=== PATIENT | female | born 1950 | race Caucasian/White ===

== ENCOUNTER 2018-08-24 01:13 | Inpatient (IN) | payer MEDICAID, MEDICARE ==
[2018-08-23 13:59] LABS: INR 0.94
[~2018-08-24] VITALS: Ht 170.2 cm; Wt 78.9 kg
[2018-08-24] VITALS (13 sets, daily range): BP systolic 90–160; BP diastolic 76–138
[~2018-08-24 01:13] MED LIST: OXYC-823 PO; PROP40TA45 PO; TIZA4CAP3 PO; ZOLP-350 PO
[2018-08-24] MEDS: PREGABALIN 150 MG CAPSULE PO ONE ×2 (07:23→08:45)
[2018-08-24] MEDS: ONDANSETRON 4 MG/2 ML VIAL IVP ONE ×2 (08:00→09:35)
[2018-08-24] MEDS ORDERED: ONDANSETRON 4 MG/2 ML VIAL ONE (08:01)
[2018-08-24] MEDS ORDERED: PROPOFOL EMUL(*) 10MG/ML 20 ML 20 ML ONE (08:01)
[2018-08-24] MEDS ORDERED: LIDOCAINE MPF 1% 5 ML VIAL ONE (08:01)
[2018-08-24] MEDS ORDERED: DEXAMETHASONE SOD 4 MG/ML VIAL ONE (08:02)
[2018-08-24] MEDS ORDERED: fentaNYL CITR 100 MCG/2 ML AMP ONE (08:05)
[2018-08-24] MEDS ORDERED: MIDAZOLAM 2 MG/2 ML VIAL IVP PRN (08:45)
[2018-08-24] MEDS ORDERED: cloNIDine EPIDUR INJ 100MCG/ML 40 MCG, ROPIVACAINE 0.5% 20 ML VIAL 25 ML, EPINEPHrine H... INJ ONE (08:45)
[2018-08-24] MEDS ORDERED: CLINDAMYCIN(*) 900 MG/NS 50 ML 50 ML IVPB ONE (08:45)
[2018-08-24] MEDS ORDERED: LIDOCAINE/SOD BICARB 8.4% SYR ID ONE (08:45)
[2018-08-24] MEDS ORDERED: BACITRACIN 50000 UNIT/VIAL 100,000 UNIT in NS 0.9% 3000 ML IRRIGATION BAG 3,000 ML IR ONE (08:45)
[2018-08-24] MEDS ORDERED: NORMOSOL R SOLN(*) 1000 ML BAG 1,000 ML IV PRN (08:45)
[2018-08-24] MEDS ORDERED: ACETAMINOPHEN 500 MG TAB PO ONE (08:45)
[2018-08-24] MEDS ORDERED: FAMOTIDINE 20 MG TAB PO ONE (08:45)
[2018-08-24] MEDS ORDERED: LIDOCAINE/SOD BICARB 8.4% SYR ONE (10:00)
[2018-08-24] MEDS ORDERED: ePHEDrine 25 MG/5 ML DISP.SYR IVP ONE (11:16)
[2018-08-24] MEDS ORDERED: BISACODYL 10 MG SUPP PR PRN (13:45)
[2018-08-24] MEDS ORDERED: diphenhydrAMINE 50 MG/ML VIAL IVP PRN (13:45)
[2018-08-24] MEDS ORDERED: BENZOCAINE/MENTHOL 1 EACH LOZG PO PRN (13:45)
[2018-08-24] MEDS ORDERED: PROMETHAZINE 25 MG/ML 1 ML AMP IVP PRN (13:45)
[2018-08-24] MEDS ORDERED: LR 1000 ML BAG 1000 ML IV PRN (13:45)
[2018-08-24] MEDS ORDERED: diphenhydrAMINE 25 MG CAP PO PRN (13:45)
[2018-08-24] MEDS ORDERED: FLUSH 10 ML SYR IVP PRN (13:45)
[2018-08-24] MEDS ORDERED: MAGNESIUM CITRATE 300 ML BTL PO PRN (13:45)
[2018-08-24] MEDS ORDERED: ONDANSETRON 4 MG/2 ML VIAL IVP PRN (13:45)
--- NOTE | 2018-08-24 13:46 | OPERATIVE REPORT 1 ---
EVENT DATE: August 24, 2018 SURGEON: Francisco J Landry MD ANESTHESIOLOGIST: Efren Coreas MD ANESTHESIA: General plus spinal. MOLD TECHNICIAN: SHIRA Bryant PREOPERATIVE DIAGNOSIS Right hip osteoarthritis. POSTOPERATIVE DIAGNOSIS Right hip osteoarthritis. PROCEDURE PERFORMED Right total hip arthroplasty. FINDINGS The patient has a significant amount of arthritic changes associated with her hip but was amenable for total hip replacement. ESTIMATED BLOOD LOSS About 150 mL. DRAINS None. COMPLICATIONS None. TOURNIQUET TIME Not applicable. IMPLANTS USED Christiano size 62 mm cluster-hole Trabecular Metal cup with a neutral liner for a 40 mm head, 13.5 extended offset stem with a 40 head, one dome-hole plug and three screw hole plugs. SPECIMENS None. INDICATIONS AND HISTORY This patient is a 67-year-old female that presented to my clinic for evaluation of right hip pain going on for a long time. She had multiple surgeries associated with the hip secondarily due to infections and she had been clear of infections for multiple years so she wanted to go ahead with the total hip arthroplasty as she was having quite a bit of pain and irritation associated with it. Therefore,we went over the risks and benefits associated with the total hip arthroplasty and the risks and benefits were discussed and informed consent was obtained at the last clinic visit. We got her set up to do this and she understood that there is a significant increase in the risks of infection and risks associated with problems associated with the hip and she stated she understood that prior to the procedure also. Informed consent was obtained at the last clinic visit. DESCRIPTION OF PROCEDURE The patient was brought into the operating room. She and the procedure were both verified. Unfortunately, they had a lot of problems with access so I had to do a central line associated with her in order to get IV access. Once they were able to do this, they then established a spinal and then intubated her and turned her to the lateral decubitus position with the right hip towards the ceiling. The right hip was then prepped and draped in the usual fashion and a time-out was observed, verifying the correct patient and procedure. The standard posterior lateral was made through the skin and subcutaneous tissue. I went through all the way down to the short external rotators after cutting the gluteal musculature and exposing the IT band. I then put a Charnley retractor into this area and then was able to go and cut the short external rotators. We then tagged the piriformis for later repair and then got down to the capsule of the hip. Once I was able to make a T-shaped incision within the capsule, I was able to tag that for later repair and then dislocate the hip. Once we were able to dislocate the hip, I then was able to cut the femoral neck without any major difficulty, cutting it just above the lesser trochanter. I then retracted the femur anteriorly and then was able to gain access to the acetabulum. Once I placed retractors all the way around there, I then removed the labrum 360 degrees around the acetabulum and then used a curette to get down to the true pelvic floor. Once I was able to get down to the true pelvic floor, I then commenced reaming, starting from a 49 [address] re[address] all the way up to a 61 mm reamer, which had a good concentric fit. Therefore, I then put in a 62 mm cluster-hole shell. Once I was able to put in the 62 mm cluster-hole shell, I then inserted that and got it down and had good fit associated with it so we put in a dome-hole plug and three screw hole plugs associated with it. I then put in the 40 neutral liner without any issues and then turned attention to the femur after soaking the wound with Aricept. Once on the femur, I was then able to use the box cutting osteotome then followed by the canal finder and then the lateralizing reamer. I then was able to commence broaching all the way up from a 4 to a 13.5 broach. I then put on a standard head and neck. This was found to be a little bit unstable so, therefore, we then changed the extended offset, which made sense given her arthritic change associated with the infection. Once I did this, it was significantly more stable so, therefore, we then took intraoperative x-rays and verified the cup was in good position and leg lengths were pretty much equal. This was then followed by irrigation again with copious amounts of saline with a pulsatile lavage with Bacitracin mixed in and also allowing Aricept to sit and soak within the wound. I then was able to irrigate again and then put in the final components without any difficulty. Everything seemed very stable so, therefore, we then closed the posterior capsule with a heavy Ethibond. This was then followed by closure of the piriformis through posterior drill holes and then I was able to close the IT band and gluteal musculature with a #2 Stratafix and then followed by 2-0 Vicryl in the fat layer and then 2-0 Stratafix in the subcutaneous layer. I then put in a 4-0 Monocryl and anesthetized with ropivacaine and we had cocktail prior to the closure and then dressed it with Steri-Strips, gauze, 4x4's and a soft dressing. The patient was then awakened, extubated and transferred to PACU in stable condition, where she will be admitted overnight. ANNEL
[2018-08-24] MEDS ORDERED: NORMOSOL R SOLN(*) 1000 ML BAG 1,000 ML IV ONE (13:56)
--- NOTE | 2018-08-24 15:33 | RADIOLOGY IMAGING REPORT ---
FACILITY: [facility] PATIENT NAME: Lynsey Garza : 1950 MR: [id number] V: [id number] EXAM DATE: ORDERING PHYSICIAN: DANIELLE PURCELL TECHNOLOGIST: Location: [facility] [place] Patient: Lynsey Garza : 1950 Visit/Account:[id number] Date of Sevice: 08/24/2018 PELVIS HISTORY: S/P TOTAL HIP ARTHROPLASTY, CHECK PLACEMENT Single AP film. FINDINGS: Status post right hip arthroplasty. Good positioning of the femoral and acetabular components. Post op soft tissue changes in the right hip. IMPRESSION: 1. Status post right hip arthroplasty. Report Dictated By: Charanjit Benavides MD at 08/24/2018 3:19 PM Report E-Signed By: Charanjit Benavides MD at 08/24/2018 3:28 PM WSN:[email or web address]
--- NOTE | 2018-08-24 15:36 | RADIOLOGY IMAGING REPORT ---
FACILITY: [facility] PATIENT NAME: Lynsey Garza : 1950 MR: [id number] V: [id number] EXAM DATE: ORDERING PHYSICIAN: DANIELLE PURCELL TECHNOLOGIST: Location: [facility] Patient: Lynsey Garza : 1950 Visit/Account:[id number] Date of Sevice: 08/24/2018 HIP IN OR RIGHT HISTORY: RIGHT TOTAL HIP LEFT HIP INTRAOPERATIVE FILMS (TWO FILMS) FINDINGS: Intraoperative films demonstrating right hip arthroplasty. There is good positioning of the acetabul ar femoral components. Overlying surgical instrumentation. Arthroplasty with good positioning of th e femoral and acetabular components. IMPRESSION: Intraoperative films as described. Two films obtained Report Dictated By: Charanjit Benavides MD at 08/24/2018 3:17 PM Report E-Signed By: Charanjit Benavides MD at 08/24/2018 3:31 PM WSN:QUITA
--- NOTE | 2018-08-24 16:26 | Hospitalist Consultation ---
History of Present Illness Requesting Physician Dr. Landry Reason for Consult Medical Management Chief Complaint s/p right hip replacement History of Present Illness She was admitted s/p right hip replacement. It is reported the surgery went well and without complication. History Problems: (1) Tremor Status: Chronic (2) Hx of blood clots Status: Chronic Home Meds Reported Medications Tizanidine Hcl (TIZANIDINE HCL) 4 Mg Capsule, 4 MG PO DAILY PRN for HEADACHE, CAPSULE 08/17/18 Zolpidem Tartrate (AMBIEN) 10 Mg Tablet, 1 TAB PO QHS, TAB 08/17/18 Propranolol Hcl (PROPRANOLOL HCL) 40 Mg Tablet, 40 MG PO BID 08/17/18 Oxycodone Hcl (OXYCONTIN) 10 Mg Tab.er.12h, 10 MG PO TID, TAB 08/17/18 Allergies: Coded Allergies: NSAIDS (Non-Steroidal Anti-Inflamma (Verified Allergy, Severe, SEVERE SWEATING AND SEVERE N/V., 08/17/18) STATES, 'DEFINITELY NO TORADOL'. ketorolac (Verified Allergy, Severe, SPECIFICALLY STATES NO TORADOL/SEVERE SWEATING/N/V, 08/24/18) pentazocine (Verified Allergy, Severe, GI DISTRESS, 08/17/18) Penicillins (Verified Allergy, Unknown, 08/17/18) HAS A CHILD AND HER MOTHER TOLD HER 'SHE ALMOST '. Hx Smoking: Yes (SMOKED <1 PPD X 30+YRS. QUIT 02/2018-- occ since ) Smoking Status: Current: Some Days Smoker Exposure to Second Hand Smoke?: No When Quit Tobacco?: 02/2018 Caffeine Intake: Coffee Caffeine/Cups Per Day: 2/WK, NOT A DAILY THING. DRINKS 1-2 PEPSI/COKE PER DAY, TEA DAILY Hx Alcohol Use: No Hx Substance Use Disorder: No Social Drug Use: Never History of IV Drug Use: No Review of Systems All Systems Reviewed/Normal: Yes, Except as Noted Constitutional: Other (sleeping throughout exam) Exam Vital Signs Vital Signs Date Time Temp Pulse Resp B/P (MAP) Pulse Ox O2 Delivery O2 Flow Rate FiO2 08/24/18 16:07 97 Nasal Cannula 1.0 08/24/18 15:35 97.4 58 12 123/82 (96) General Appearance: No Acute Distress, Afebrile Cardiovascular: Regular Rate and Rhythm Respiratory: No Respiratory Distress, Clear to Auscultation Psych: Other (sleeping throughout exam) Assessment and Plan Problems: (1) Status post right hip replacement Status: Acute Assessment & Plan: Followed by Dr. Landry. She was placed on Aspirin for DVT prophylaxis. She does have history of DVT. I was unable to obtain details rega rding DVT, but she does have IVC filter placed. (2) Tremor Status: Chronic Assessment & Plan: Continue chronic propranolol with hold parameters. (3) Hx of blood clots Status: Chronic Assessment & Plan: See above. Venous Thromboembolism Antithrombotics Is Pt On Any Antithrombotics?: No Exam Sepsis Risk: No Definite Risk LUDY MAYORGA BRUSH HOLDER ASSEMBLER August 24, 2018 16:26
[2018-08-24] MEDS: oxyCODON/ACET (*)5/325MG (CII) 1 TAB TAB PO PRN ×2 (16:50→21:12)
--- NOTE | 2018-08-24 17:22 | NUR ---
Physical Therapy Impression PT eval completed and Nursing present for safety during transfer and [place] [facility] previously sleeping soundly, per nursing SBAR, however, upon PT arrival pt is requesting pain meds and is very restless and impulsive with yellow wedge in place and attempting to roll onto L) side. Pt able to verbalize 2/3 of hip precautions but does not comply with them as she is attempting to reposition for comfort in bed. During transfers, pt impulsively sits up in long-sitting position in bed and requires both verbal and tactile cues to adhere to posterior hip precautions. Pt gradually agreeable to follow therapist's cues to transfer safely out of bed, but insists on transferring to L) side, which increases risk of internal rotation and adduction of R) LE during this transfer technique. Nursing present and instructed to maintain R) LE in neutral alignment and decrease pt's risk of internal rotation. Upon return to bed after toileting, pt continues to c/o pain at R) inguinal triangle area and states that the only relief previously was to lay in L) sidelying. Pt is adamant that she can not lay on her back and keeps attempting to roll onto L) side. PT/Nursing educated pt on the importance of maintaining R) hip in neutral alignment, not crossing midline and without internal rotation. Firm pillow placed between pt's lower legs in hooklying position and PT demonstrates to nursing and pt a safe manner in which to position onto L) side while maintaining posterior hip precautions. Pt/CG instructed that they are to call for assistance from nursing before attempting to change out of this position as well. Pt notes that this position is somewhat more comfortable. Pt left in L) sidelying with pillow placed for neutral alignment, with nursing and grand daughter present. Physical Therapy Goals 1. Pt to be compliant with posterior hip precautions during bed mobility and supine to/from sit transfers with CGA/Min assist 2. Pt to be SBA/CGA for sit to/from stand transfers with proper safety 3. Pt to ambulate 100' with least restrictive device and SBA/CGA 4. Pt to david up/down 4 steps with rail and SBA/CGA adhering to posterior hip precautions. Patient's Goals
[2018-08-24] MEDS: CLINDAMYCIN 150 MG CAP PO SCH ×2 (17:58→23:49)
[2018-08-24] MEDS ORDERED: OXYC10TA67 PO (18:23)
[2018-08-24] MEDS ORDERED: ALB18R INH (18:23)
[2018-08-24] MEDS: HYDROmorphone HCL 2 MG/ML SDV IVP PRN (19:17)
[2018-08-24] MEDS ORDERED: ASPIRIN 325 MG TAB PO SCH (21:00)
[2018-08-24] MEDS: PROPRANOLOL HCL 20 MG TAB PO SCH (21:00)
[2018-08-24] MEDS: ZOLPIDEM TARTRATE 5 MG TAB PO PRN (21:47)
[2018-08-25] VITALS (7 sets, daily range): BP systolic 100–125; BP diastolic 34–76; BMI 27.2
[2018-08-25] MEDS: HYDROmorphone HCL 2 MG/ML SDV IVP PRN ×6 (00:11→21:14)
[2018-08-25] MEDS: oxyCODON/ACET (*)5/325MG (CII) 1 TAB TAB PO PRN ×6 (02:19→23:26)
[2018-08-25] MEDS: CLINDAMYCIN 150 MG CAP PO SCH (06:24)
[2018-08-25] MEDS: ENOXAPARIN 30 MG/0.3 ML SYR SC SCH (09:36)
[2018-08-25] MEDS: PROPRANOLOL HCL 20 MG TAB PO SCH ×2 (09:37→21:00)
--- NOTE | 2018-08-25 10:17 | Hospitalist Progress Note ---
Subjective Progress Notes Subjective She was admitted s/p hip replacement. She has complaints of pain to the post-op area. She has not been moving well post-operatively. Patient Complains of: Cardiovascular: No: Chest Pain Respiratory: No: Shortness of Breath Physical Exam Vital Signs Date Time Temp Pulse Resp B/P (MAP) Pulse Ox O2 Delivery O2 Flow Rate FiO2 08/25/18 09:33 98.2 82 16 100/58 (72) 91 Nasal Cannula 1.0 Intake and Output 08/25/18 01:00 Intake Total 2390 ml Output Total 150 ml Balance 2240 ml Intake Oral 240 ml IV Total 2150 ml Output Estimated Blood Loss 150 ml # Voids 4 General Appearance: Alert, Awake, No Acute Distress Neuro: Other (noticable tremor at rest) Cardiovascular: Regular Rate and Rhythm Respiratory: No Respiratory Distress, Clear to Auscultation Extremities: Warm, Perfused; No Edema Psych: Alert & Oriented X3, Appropriate Mood & Affect Result Diagram: 08/25/1854708/25/18547 Assessment and Plan Problems: (1) Status post right hip replacement Status: Acute Assessment & Plan: Followed by Dr. Landry. She was placed on Aspirin for DVT prophylaxis, but the patient refuses to take NSAIDS. She does have history of DVT. 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 She would like to continue Lovenox injections for DVT prophylaxis at this time. (2) Tremor Status: Chronic Assessment & Plan: Continue chronic propranolol with hold parameters. She likely has Parkinson's per patient, but she is unsure if she has been truly diagnosed. The tremors will likely exacerbate her hip replacement rehab. (3) Hx of blood clots Status: Chronic Assessment & Plan: See above. Exam Sepsis Risk: No Definite Risk LUDY MAYORGA GAUGE AND INSTRUMENT INSPECTOR August 25, 2018 10:17
--- NOTE | 2018-08-25 10:38 | NUR ---
Physical Therapy Impression Nursing present to assist with safety for pivot transfer to bedside commode. Pt now agreeable to transfer to R) side of bed, which is much safer for R) NELSON to ensure improved neutral alignment. Pt is able to verbalize no crossing and no flexion greater than 70 degrees but does not recall "no internal rotation". Pt requires Tactile cues and Min assist to maintain posterior hip precautions during bed mobility. Pt requires Min/Mod assist from PT to complete safe sit to stand at FWW and demos significant tremors that disrupt the walker initially. Pt then able to gain center of gravity over base of support and requires Min assist with FWW negotiation to pivot to [place] with Nursing present to stabilize commode and assist with safety. After toileting at [place] pt tolerated ambulation with FWW and 2 person assist to negotiate and stabilize walker and second person to assist in advancing R) LE forward, as pt's tremors limit her ability to coordinate this motion. Pt does not c/o increased pain during mobility, but rather is frustrated with this apparent dyskinesia. Pt states that she has sought care for the tremors and has recently increased a medication to address this. Based on current level of safety, PT recommends acute rehab facility to aggressively address balance and coordination for transfers and ambulation while maintaining posterior hip precautions after NELSON. Pt resides in [place] and notes that her daughter and grand daughter will likely require trng to assist her in safety once she transfers home. Physical Therapy Goals 1. Pt to be compliant with posterior hip precautions during bed mobility and supine to/from sit transfers with CGA/Min assist 2. Pt to be SBA/CGA for sit to/from stand transfers with proper safety 3. Pt to ambulate 100' with least restrictive device and SBA/CGA 4. Pt to david up/down 4 steps with rail and SBA/CGA adhering to posterior hip precautions. Patient's Goals
[2018-08-25] MEDS ORDERED: NICOTINE CARTRIDGE 1 EA PO PRN (11:15)
[2018-08-25] MEDS ORDERED: NICOTINE INH SYSTEM 10 MG/INH INH PRN (11:15)
--- NOTE | 2018-08-25 11:43 | NUR ---
Occupational Therapy Impression OT evaluation completed. Pt. would benefit from short/nursing home subacute rehab due to pt. being at very high fall risk and not adhering to hip precautions. Continue with POC. Occupational Therapy Goals Patient's Goal
--- NOTE | 2018-08-25 17:00 | NUR ---
Physical Therapy Impression Pt tolerated ambulation x 8' with FWW and Min assist from PT to negotiate walker and advance R) LE at times. Pt fatigues quickly and at foot of bed requests to transfer back to supine in bed. After brief sitting rest break on commode, pt then completed side step "scoot" along edge of bed toward head of bed. Pt demos significant improvement in ability with decreased tremor, as compared to this morning and one person assist is now functional. Pt encouraged to have further rehab prior to d/c home to ensure appropriate level of safety and recall of NELSON precautions as they apply to ADL's. Pt agreeable to speak with nurse discharge planner regarding these options if medically appropriate. Physical Therapy Goals 1. Pt to be compliant with posterior hip precautions during bed mobility and supine to/from sit transfers with CGA/Min assist 2. Pt to be SBA/CGA for sit to/from stand transfers with proper safety 3. Pt to ambulate 100' with least restrictive device and SBA/CGA 4. Pt to david up/down 4 steps with rail and SBA/CGA adhering to posterior hip precautions. Patient's Goals
[2018-08-25] MEDS: ZOLPIDEM TARTRATE 5 MG TAB PO PRN (21:14)
[2018-08-26] MEDS: HYDROmorphone HCL 2 MG/ML SDV IVP PRN ×4 (00:57→15:04)
[2018-08-26] MEDS: oxyCODON/ACET (*)5/325MG (CII) 1 TAB TAB PO PRN ×5 (03:17→21:00)
[2018-08-26 04:00] VITALS: BP 120/70
[2018-08-26 08:30] VITALS: BP 116/70
[2018-08-26] MEDS: PROPRANOLOL HCL 20 MG TAB PO SCH ×2 (08:32→21:00)
[2018-08-26] MEDS: ENOXAPARIN 30 MG/0.3 ML SYR SC SCH (08:32)
--- NOTE | 2018-08-26 09:32 | NUR ---
ECF Referral - Met with patient, she wants to continue rehab locally versus having to manage the drive to [place]. Reported to me that PT stated she had improved so much from yesterday morning's session to the afternoon session. Explained rehab philosophy and she verbalized understanding. PASRR negative. Message left with [facility] nurse, she will have her 3 night qualifying stay on 08/27/18 and can be admitted if medically ready.
--- NOTE | 2018-08-26 10:18 | Hospitalist Progress Note ---
Subjective Progress Notes Subjective She was admitted s/p hip replacement. She had no acute events overnight. Patient Complains of: Cardiovascular: No: Chest Pain Respiratory: No: Shortness of Breath Physical Exam Vital Signs Date Time Temp Pulse Resp B/P (MAP) Pulse Ox O2 Delivery O2 Flow Rate FiO2 08/26/18 08:30 98.6 80 16 116/70 (85) Nasal Cannula 1.0 08/26/18 04:00 92 Intake and Output 08/26/18 01:00 Intake Total 1080 ml Balance 1080 ml Intake Oral 1080 ml # Voids 7 General Appearance: Alert, Awake, No Acute Distress, Afebrile Neuro: No Gross deficits Cardiovascular: Regular Rate and Rhythm Respiratory: No Respiratory Distress, Clear to Auscultation GI: Soft and Non-Tender Psych: Alert & Oriented X3, Appropriate Mood & Affect Result Diagram: 08/26/18 0544 08/25/18 0548 Assessment and Plan Problems: (1) Status post right hip replacement Status: Acute Assessment & Plan: Followed by Dr. Landry. She was placed on Aspirin for DVT prophylaxis, but the patient refuses to take NSAIDS. She does have history of DVT. 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 She would like to continue Lovenox injections for DVT prophylaxis at this time. (2) Tremor Status: Chronic Assessment & Plan: Continue chronic propranolol with hold parameters. She likely has Parkinson's per patient, but she is unsure if she has been truly diagnosed. The tremors will likely exacerbate her hip replacement rehab. (3) Hx of blood clots Status: Chronic Assessment & Plan: See above. Exam Sepsis Risk: No Definite Risk LUDY MAYORGA CAR SHAGGER August 26, 2018 10:18
--- NOTE | 2018-08-26 11:26 | NUR ---
Physical Therapy Impression Pt tolerated ambulation of 8' to foot of bed and then requested a sitting rest break in W/C. Pt then ambulated an additional 8' to BR doorway and requested to sit in W/C again. Pt maneuvered in W/C to area next to toilet and completed a [id number] transfer with Min assist to access toilet and then was wheeled back to bedside to completed [id number] transfer again to bed. Pt notes that her UE's fatigue easily, however, pt did complete an overall greater distance ambulation today with improved safety and ability to advance R) LE. Physical Therapy Goals 1. Pt to be compliant with posterior hip precautions during bed mobility and supine to/from sit transfers with CGA/Min assist 2. Pt to be SBA/CGA for sit to/from stand transfers with proper safety 3. Pt to ambulate 100' with least restrictive device and SBA/CGA 4. Pt to david up/down 4 steps with rail and SBA/CGA adhering to posterior hip precautions. Patient's Goals
[2018-08-26 12:12] VITALS: Ht 170.2 cm; Wt 78.9 kg
[2018-08-26 16:40] VITALS: BP 139/78
[2018-08-26] MEDS: MAGNESIUM HYDROXIDE* 30ML UDCP PO PRN (16:55)
[2018-08-26 19:30] VITALS: BP 120/73
[2018-08-26] MEDS: ZOLPIDEM TARTRATE 5 MG TAB PO PRN (21:01)
[2018-08-26 23:00] VITALS: BP 111/69
[2018-08-27] MEDS: oxyCODON/ACET (*)5/325MG (CII) 1 TAB TAB PO PRN ×3 (00:47→09:33)
[2018-08-27 04:50] VITALS: BP 137/73
[2018-08-27 08:22] VITALS: BP 108/78
[2018-08-27] MEDS: PROPRANOLOL HCL 20 MG TAB PO SCH (08:25)
[2018-08-27] MEDS: ENOXAPARIN 30 MG/0.3 ML SYR SC SCH (08:26)
[2018-08-27] MEDS: MAGNESIUM HYDROXIDE* 30ML UDCP PO PRN (09:33)
--- NOTE | 2018-08-27 10:41 | Hospitalist Progress Note ---
Subjective Progress Notes Subjective She was admitted s/p hip replacement. She had no acute events overnight. She plans to go to [facility] today for further rehab. Patient Complains of: Cardiovascular: No: Chest Pain Respiratory: No: Shortness of Breath Physical Exam Vital Signs Date Time Temp Pulse Resp B/P (MAP) Pulse Ox O2 Delivery O2 Flow Rate FiO2 08/27/18 08:45 Nasal Cannula 08/27/18 08:22 98.1 77 12 108/78 (88) 91 08/27/18 04:50 1.0 Intake and Output 08/27/18 01:00 Intake Total 1220 ml Balance 1220 ml Intake Oral 1220 ml # Voids 10 General Appearance: Alert, Awake, No Acute Distress, Afebrile Neuro: No Gross deficits Cardiovascular: Regular Rate and Rhythm Respiratory: No Respiratory Distress, Clear to Auscultation Psych: Alert & Oriented X3, Appropriate Mood & Affect Result Diagram: 08/27/18 0544 08/25/18 0548 Assessment and Plan Problems: (1) Status post right hip replacement Status: Acute Assessment & Plan: Followed by Dr. Landry. She was placed on Aspirin for DVT prophylaxis, but the patient refuses to take NSAIDS. She does have history of DVT. 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 She would like to continue Lovenox injections for DVT prophylaxis at this time. (2) Tremor Status: Chronic Assessment & Plan: Continue chronic propranolol with hold parameters. She likely has Parkinson's per patient, but she is unsure if she has been truly diagnosed. The tremors will likely exacerbate her hip replacement rehab. (3) Hx of blood clots Status: Chronic Assessment & Plan: See above. Exam Sepsis Risk: No Definite Risk LUDY MAYORGA SWIMMING POOL MAINTENANCE August 27, 2018 10:41
== END 2018-08-27 10:17 | DRG 470 ==
LOC: OR 01:13 → OBSVTOIN 15:35 → MED 15:35
PROVIDERS: ADMIT Orthopaedic Surgery; ATTEND Orthopaedic Surgery
PROC: 0SR902A Replacement of Right Hip Joint with Metal on Polyethylene Synthetic Substitute, Uncemented, Open Approach (ICD-10-PCS; principal; 2018-08-24 11:03)
DX: M16.11 Unilateral primary osteoarthritis, right hip (principal); M25.751 Osteophyte, right hip; G89.29 Other chronic pain; N18.3 Chronic kidney disease, stage 3 (moderate); Z86.718 Personal history of other venous thrombosis and embolism; J44.9 Chronic obstructive pulmonary disease, unspecified; Z88.0 Allergy status to penicillin; Z88.8 Allergy status to other drugs, medicaments and biological substances; Z87.891 Personal history of nicotine dependence; R25.1 Tremor, unspecified; Z90.49 Acquired absence of other specified parts of digestive tract
CPT/HCPCS: 36415; 72170; 82310; 82374; 82435; 82565; 82947; 84132; 84295; 84520; 85014; 85018; 85610; 86850; 86900; 86901; 97161; 97165; C1713; C1776; J1100; J1170; J1650; J2001; J2250; J2405; J2704; J3010; J3490

== ENCOUNTER 2018-08-27 10:22 | Inpatient (IN) | payer MEDICAID, MEDICARE ==
[2018-08-26 12:12] VITALS: Ht 170.2 cm; Wt 83.5 kg
[~2018-08-27] VITALS: Ht 170.2 cm; Wt 83.5 kg
[~2018-08-27 10:22] MED LIST changes: +ALB18R INH; +OXYC10TA67 PO
--- NOTE | 2018-08-27 10:36 | NUR ---
SW found pt only has Medicare part B (not A) and Medicaid as payer. LT101 requested, and VM left for Medicaid to determine if any changes need to be made to pt's Medicaid for payment. Appears pt has disabled SSI Medicaid. SHAYNA will follow-up on this.
--- NOTE | 2018-08-27 10:42 | ECF H&P BLANK ---
F H&P UPDATE Patient Name: Lynsey Garza Unit Number: [id number] Date of : 1950 Patient Status: Discharged Inpatient Attending Doctor: Francisco J Landry MD History of Present Illness History of Present Illness Chief Complaint s/p right hip replacement History of Present Illness She was admitted s/p right hip replacement. It is reported the surgery went well and without complication. History History Problems: (1) Tremor Status: Chronic (2) Hx of blood clots Status: Chronic Home Meds Reported Medications Tizanidine Hcl (TIZANIDINE HCL) 4 Mg Capsule, 4 MG PO DAILY PRN for HEADACHE, CAPSULE 08/17/18 Zolpidem Tartrate (AMBIEN) 10 Mg Tablet, 1 TAB PO QHS, TAB 08/17/18 Propranolol Hcl (PROPRANOLOL HCL) 40 Mg Tablet, 40 MG PO BID 08/17/18 Oxycodone Hcl (OXYCONTIN) 10 Mg Tab.er.12h, 10 MG PO TID, TAB 08/17/18 Allergies: Coded Allergies: NSAIDS (Non-Steroidal Anti-Inflamma (Verified Allergy, Severe, SEVERE SWEATING AND SEVERE N/V., 08/17/18) STATES, 'DEFINITELY NO TORADOL'. ketorolac (Verified Allergy, Severe, SPECIFICALLY STATES NO TORADOL/SEVERE SWEATING/N/V, 08/24/18) pentazocine (Verified Allergy, Severe, GI DISTRESS, 08/17/18) Penicillins (Verified Allergy, Unknown, 08/17/18) HAS A CHILD AND HER MOTHER TOLD HER 'SHE ALMOST '. Hx Smoking: Yes (SMOKED <1 PPD X 30+YRS. QUIT 02/2018-- occ since ) Smoking Status: Current: Some Days Smoker Exposure to Second Hand Smoke?: No When Quit Tobacco?: 02/2018 Caffeine Intake: Coffee Caffeine/Cups Per Day: 2/WK, NOT A DAILY THING. DRINKS 1-2 PEPSI/COKE PER DAY, TEA DAILY Hx Alcohol Use: No Hx Substance Use Disorder: No Social Drug Use: Never History of IV Drug Use: No Review of Systems Review of Systems All Systems Reviewed/Normal: Yes, Except as Noted Constitutional: Other (sleeping throughout exam) Exam Exam Vital Signs Vital Signs Date Time Temp Pulse Resp B/P (MAP) Pulse Ox O2 Delivery O2 Flow Rate FiO2 08/24/18 16:07 97 Nasal Cannula 1.0 08/24/18 15:35 97.4 58 12 123/82 (96) General Appearance: No Acute Distress, Afebrile Cardiovascular: Regular Rate and Rhythm Respiratory: No Respiratory Distress, Clear to Auscultation Psych: Other (sleeping throughout exam) Medical Decision Making Medical Decision Making Assessment and Plan Assessment and Plan Problems: (1) Status post right hip replacement Status: Acute Assessment & Plan: Followed by Dr. Landry. She was placed on Aspirin for DVT prophylaxis. She does have history of DVT. I was unable to obtain details regarding DVT, but she does have IVC filter placed. (2) Tremor Status: Chronic Assessment & Plan: Continue chronic propranolol with hold parameters. (3) Hx of blood clots Status: Chronic Assessment & Plan: See above. VTE Venous Thromboembolism Antithrombotics Is Pt On Any Antithrombotics?: No CVA Documentation CVA Documentation Heart Failure Documentation Heart Failure Sepsis Event Exam Sepsis Risk: No Definite Risk LUDY MAYORGA [facility] August 24, 2018 16:26 The above acute care issues are resolving and/or stable. [place] [facility] and/or skilled rehabilitation and is ready for admission to [facility]. Any change in condition is described below. LUDY MAYORGA EXTRUDER OPERATOR MULTIPLE August 27, 2018 10:42
[2018-08-27] MEDS ORDERED: PROPRANOLOL HCL 20 MG TAB PO SCH (10:47)
[2018-08-27] MEDS ORDERED: MAGNESIUM HYDROXIDE* 30ML UDCP PO PRN (10:47)
[2018-08-27] MEDS ORDERED: NICOTINE INH SYSTEM 10 MG/INH INH PRN (10:47)
[2018-08-27] MEDS ORDERED: NICOTINE CARTRIDGE 1 EA PO PRN (10:47)
[2018-08-27] MEDS ORDERED: BISACODYL 10 MG SUPP PR PRN (10:49)
--- NOTE | 2018-08-27 11:06 | NUR ---
Spoke with Adilene at [employer] and notified of pt's admission to ECF and she entered this in system. Reports no other actions needed for admission.
[2018-08-27 11:29] VITALS: BP 129/57
--- NOTE | 2018-08-27 11:37 | Consultant Pharmacy Review ---
Hot Worker Review Medication Review Do All Mecications have a Diag: Yes (Patient may receive the flu vaccine if she desires and the pneumovax vaccine.) Pneumococcal Vaccine HX Pneumo Vac ([id number]): Yes (2011) JULES SERRATO August 27, 2018 11:37
[2018-08-27] MEDS: oxyCODON/ACET (*)5/325MG (CII) 1 TAB TAB PO PRN ×2 (13:50→17:33)
--- NOTE | 2018-08-27 14:04 | OT ECF NOTE ---
Type of Note: Initial Note Primary Medical Diagnosis: Generalized weakness s/p right total hip replacement. WBAT, Posterior hip precautions Occupational Therapy Evaluation Date: 08/27/18 SUBJECTIVE: Prior Hospitalization: [facility] 08/24/18 thru 08/27/18. DOS: 08/24/[address] Landry Prior Level of Function: Patient reports daughter resides with her and assists with LB dressing, bathing and all IADLs. Pt reports seeing a chronic pain specialist and leaving the house primarily for medical appointments. She reports frequent falls at home with roughly 10 falls in the last month. Prior Living Status: Apartment Living with family-daughter Assist by family Community Services: No known needs Home Accessibility: Stairs with rails All needs on one level Tub/shower commination Equipment Owned: Front wheeled walker Toilet riser Medical Complications/Past Medical History: Chronic tremor-pt reports Parkinson's, hx DVTs Psychosocial Support: Supportive family in [place] Pain Scale (0-10): 7-8/10 in right hip. 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 ASSESSMENT: Lynsey presents to [facility] with decreased independence for ADLs and functional mobility s/p right total hip replacement. She verbalizes all posterior hip precautions but has difficulty adhering with ADLs. At [facility], she was ambulating throughout her apartment and independent with toileting. Currently, she requires assist for toileting and is not able to ambulate functional distances safely. She will benefit from skilled OT services to optimize independence for ADLs and promote adherence to posterior hip precautions. Problem List/Current Limitations: Pain Decreased activity tolerance Decreased strength Decreased coordination Decreased balance Generalized weakness Poor safety awareness Short Term Goals: 1) Pt will be Min A LB dressing with education for LB AE. 2) Pt will be SBA grooming/hygiene. 3) Pt will be SBA toilet task. 4) Pt will be Mod A shower task. 5) Pt Rosalinda Index of ADLs will improve by 2 points. Assisted Goals: Return home with services and continued assist from daughter Patient Goals: Return home to cat Rehabilitation Prognosis: Good Barriers to Discharge: Medical hx, Hx of frequent falls PLAN: The patient will benefit from skilled occupational therapy services 5 times per week for 2 weeks including: Ther ex ADL training Safety training Ther act IADL training Transfer training Adaptive equip training Bed mobility Energy conservation Thank you for this referral. If you have any questions, concerns, or comments about this report or plan, please contact me at . Mae Jama MS, OTR/L Occupational Therapist ANNEL
--- NOTE | 2018-08-27 14:09 | NUR ---
Occupational Therapy Impression SBA supine to sit with HOB raised slightly. CGA/Min A steps x4. Min A sit<>supine. Pt declined further ADLs, reporting nausea and desire to return to supine in bed. Continue POC. Occupational Therapy Goals 1) Pt will be Min A LB dressing with education for LB AE. 2) Pt will be SBA grooming/hygiene. 3) Pt will be SBA toilet task. 4) Pt will be Mod A shower task. 5) Pt Rosalinda Index of ADLs will improve by 2 points. Patient's Goal
--- NOTE | 2018-08-27 14:35 | NUR ---
Physical Therapy Impression PT ECF eval completed Pt is fairly impulsive and resistant to teaching at times, placing her R) LE at risk for internal rotation and adduction with her current technique for supine to/from sit. Pt frequently twisting to her L) side to reach for things as well, rotating R) leg inward. Pt agreeable to PT rearranging room to position tray table and chair to pt's right side to avoid this potential rotation. Pt requests to transfer to [facility] for toileting. Pt resistant to placing head of bed flat for mobility and states that she plans to sleep on her recliner sofa upon return home. Pt encouraged to attempt normal bed mobility as well. CGA/Min assist required during transfer and [id number] due to pt's tremors with mobility. Pt was able to ambulate 8'x2 reps with seated rest break after 8' while on med/surg unit, however, she did require assist at times to advance R) LE due to ataxia. Pt would benefit from further rehab to ensure safety with posterior hip precautions while returning to prior level of function with safe, indpe gait and to tolerate up/down 6 steps to enter home. Physical Therapy Goals 1. Pt to be modified indep with safe technique for supine to/from sit transfers. 2. Pt to be modified indep with sit to/from stand transfer with least restrictive device and appropriate balance in standing to allow for toileting needs and pericare. 3. Pt to ambulate x 100' with SBA/Modified indep and least restrictive device 4. Pt to complete up/down 4 steps with rail and SBA/CGA for safety 5. Pt to verbalize and demo compliance with posterior hip precautions during ADL's. Patient's Goals
[2018-08-27] MEDS: ZOLPIDEM TARTRATE 10 MG TAB PO PRN (20:31)
[2018-08-27] MEDS: PROPRANOLOL HCL 20 MG TAB PO SCH (20:32)
[2018-08-28] MEDS: oxyCODON/ACET (*)5/325MG (CII) 1 TAB TAB PO PRN ×5 (00:02→23:29)
[2018-08-28 08:14] VITALS: BP 134/71
[2018-08-28] MEDS: PROPRANOLOL HCL 20 MG TAB PO SCH ×2 (09:00→20:34)
--- NOTE | 2018-08-28 09:23 | PT ECF NOTE ---
Type of Note: Initial Note Primary Medical Diagnosis: Generalized weakness s/p right total hip replacement. WBAT, Posterior hip precautions Physical Therapy Evaluation Date: 08/27/18 SUBJECTIVE: Prior Hospitalization: [facility] 08/24/18 thru 08/27/18. DOS: 08/24/[address] Landry Prior Level of Function: Patient reports daughter resides with her and assists with LB dressing, bathing and all IADLs. Pt reports seeing a chronic pain specialist and leaving the house primarily for medical appointments. She reports frequent falls at home with roughly 10 falls in the last month. Prior Living Status: Apartment; Living with family-daughter ; Assist by family Community Services: No known needs Home Accessibility: 6 Stairs with rails to enter; All needs on one level; Tub/shower commination Equipment Owned: Front wheeled walker; Toilet riser Medical Complications/Past Medical History: Chronic tremor-pt reports Parkinson's, hx DVTs Psychosocial Support: Supportive family in [place] Pain Scale (0-10): 3/10 in right hip. Pt requesting to transfer to [facility]. OBJECTIVE: Strength: R) LE not tested secondary to NELSON; L) LE WFL however dyskinesia affects control of strength at times. ROM: (please note any abnormalities) R) LE not tested secondary to NELSON; L) LE WFL. Sensation: (please note any abnormalities) No paresthesias reported Other Neuro findings: Pt reports Parkinson's and that recent increase in medication has not been helpful with her tremors. Pt does not appear to have tremors when resting in bed, however, they increase dramatically when attempting to ambulate or when releasing walker with one hand to doff brief for toileting. Bed Mobility: Min assist to maintain R) hip within posterior hip precautions Assistive device: Bed rail; Head of bed elevated Transfers: Minimum assistance to stabilize with regard to tremors Assistive Device: Front wheeled walker Gait: Minimum assistance to negotiate walker and to advance R) LE at times Assistive device: Front wheeled walker Stairs: Not yet addressed; unsafe at this time Assistive device: Timed Up and Go (>12 seconds indicated increased risk for falls): Pt unable to ambulate >8' currently. 10 meter walk test (0.6m/second cannot function independently): Unable to ambulate a functional distance to evaluate this currently. Other Objective Measures: n/a ASSESSMENT: Pt is fairly impulsive and resistant to teaching at times, placing her R) LE at risk for internal rotation and adduction with her current technique for supine to/from sit. Pt frequently twisting to her L) side to reach for things as well, rotating R) leg inward. CGA/Min assist required during transfer and [id number] due to pt's tremors with mobility. Pt was able to ambulate 8'x2 reps with festinating gait pattern and seated rest break after 8' while on med/surg unit, however, she did require assist at times to advance R) LE due to ataxia. Pt would benefit from further rehab to ensure safety with posterior hip precautions while returning to prior level of function with safe, indep gait and to tolerate up/down 6 steps to enter home. Problem List/Current Limitations: Pain, Decreased WB, Decreased activity david, Decreased strength, Decreased ROM, Decreased coordination, Ataxia Decreased balance, Poor safety awareness, Decreased problem solving Short Term Goals: 1. Pt to be modified indep with safe technique for supine to/from sit transfers. 2. Pt to be modified indep with sit to/from stand transfer with least restrictive device and appropriate balance in standing to allow for toileting needs and pericare. 3. Pt to ambulate x 100' with SBA/Modified indep and least restrictive device 4. Pt to complete up/down 4 steps with rail and SBA/CGA for safety 5. Pt to verbalize and demo compliance with posterior hip precautions during ADL's. Detention Goals: Pt to return home with assistance of family members to assist with ensuring safety with posterior hip precautions. Patient Goals: Return home as soon as possible Rehabilitation Prognosis: Fair Barriers for Discharge: Pt ability to comply with posterior hip precautions during ADL's and comorbidity of festinating gait pattern that affects safety with movement. PLAN: The patient will benefit from skilled physical therapy services 5 times per week for 2 weeks including: Therapeutic Exercise, Therapeutic Activities, Transfer Training Gait Training, Stair Training, ADL's, Safety Training, Pt/Caregiver Training, Bed Mobility Thank you for this referral. If you have any questions, concerns, or comments about this report or plan, please contact me at . h. Lupe Castro, PT, MPT, OMS THOMASD
[2018-08-28] MEDS: ENOXAPARIN 30 MG/0.3 ML SYR SC SCH (09:48)
[2018-08-28 09:50] VITALS: BP 111/69
--- NOTE | 2018-08-28 10:44 | NUR ---
Physical Therapy Impression Patient needed min A to get out of bed to adhere to hip precautions.Patient ambulated with FWW with cuing for weight shift onto right LE and min A to help increase right step length. Patient rested after 10 feet with a seated rest then performed weight shifts side to side and front to back to demonstrated how she needs to shift her weight onto her right LE with ambulation. Patient then ambulated 7 feet with a seated rest break. Then patient ambulated another 8 feet. Patient complained of pain with ambulation in her hip and nursing was notified. Patient transferred back into bed in unsafe manner and needed min A for right LE to adhere to hip precautions and to help get in bed without falling out. Patient educated that her transfer technique is not safe and she is at ROF when she gets into bed and that she adducts her leg and needs to keep it out when transferring. Physical Therapy Goals 1. Pt to be modified indep with safe technique for supine to/from sit transfers. 2. Pt to be modified indep with sit to/from stand transfer with least restrictive device and appropriate balance in standing to allow for toileting needs and pericare. 3. Pt to ambulate x 100' with SBA/Modified indep and least restrictive device 4. Pt to complete up/down 4 steps with rail and SBA/CGA for safety 5. Pt to verbalize and demo compliance with posterior hip precautions during ADL's. Patient's Goals
--- NOTE | 2018-08-28 11:24 | Medical Nutrition Therapy ---
Nutrition Anthropometrics Height (Inches): 67.00 Height (Calculated Centimeters: 170.510861 Weight (Pounds): 184 Weight (Calculated Kilograms): 83.461 BMI: 28.8 Rodrick Nutrition Score: Probably Inadequate Rodrick Nutrition Risk Score: 13 Dietary Referral Nutrition Risk Factors: Nutrition Risk Comment: Physical Findings Physical Appearance: Overweight BMI 25-29 Skin Appearance Skin Appearance: Edema Edema Location Modifier: Edema Location: Type of Edema: Degree of Edema: Gastrointestinal Symptoms GI Symtoms: Tube Present: Bowel Sounds: Recent Bowel Pattern: Stool Characteristics: Nutritional Diagnosis Nutritional Risk Acuity 4: Good Appetite Nutritional Acuity: 4-Low Energy Requirement: 2500 (30 kcal/kg) Protein Requirement: 83 (1g/kg) Fluid Requirement: 2500 (30ml/kg) Diet Type: Diet as Tolerated TEGAN/REG Nutrition Intervention: Cont diet as ordered, Encourage intake, HS snack Nutrition Monitoring & Eval Nutrition Goals: Eat 75-100% Meal RD Patient Assessment Time: [address] Assessment Type: RD Assessment Patient Nutrition Acuity: 4-Low Follow Up Date: September 04, 2018 Nutritional Comment: 08/28 pt admitted s/p right hip replacement. Pt on TEGAN and eating 100% of meals. BUN/creatinine mildly elevated at 20/1.3. Will cont to monitor and encourage intake. JALEN ERAZO August 28, 2018 11:24
[2018-08-28 16:42] VITALS: BP 134/67
[2018-08-28 20:30] VITALS: BP 145/84
[2018-08-28] MEDS: DOCUSATE SODIUM 100 MG CAP PO SCH (20:34)
[2018-08-28] MEDS: ZOLPIDEM TARTRATE 10 MG TAB PO PRN (20:34)
[2018-08-29] MEDS: oxyCODON/ACET (*)5/325MG (CII) 1 TAB TAB PO PRN ×3 (04:56→15:07)
[2018-08-29 08:25] VITALS: BP 110/74
[2018-08-29] MEDS: PROPRANOLOL HCL 20 MG TAB PO SCH ×2 (09:00→21:00)
[2018-08-29] MEDS: ENOXAPARIN 30 MG/0.3 ML SYR SC SCH (09:00)
[2018-08-29] MEDS: POLYETHYLENE GLYCOL 17 GM PKT PO SCH (09:00)
[2018-08-29] MEDS: DOCUSATE SODIUM 100 MG CAP PO SCH ×2 (09:00→20:18)
[2018-08-29 15:30] VITALS: BP 101/62
[2018-08-29] MEDS: ZOLPIDEM TARTRATE 10 MG TAB PO PRN (20:18)
[2018-08-29 20:30] VITALS: BP 110/71
[2018-08-30] MEDS: oxyCODON/ACET (*)5/325MG (CII) 1 TAB TAB PO PRN ×3 (03:14→15:53)
[2018-08-30 07:25] VITALS: BP 126/73
[2018-08-30] MEDS: ENOXAPARIN 30 MG/0.3 ML SYR SC SCH (08:46)
[2018-08-30] MEDS: POLYETHYLENE GLYCOL 17 GM PKT PO SCH (08:46)
[2018-08-30] MEDS: DOCUSATE SODIUM 100 MG CAP PO SCH ×2 (08:46→20:20)
[2018-08-30] MEDS: PROPRANOLOL HCL 20 MG TAB PO SCH ×2 (08:47→20:21)
--- NOTE | 2018-08-30 09:46 | NUR ---
Physical Therapy Impression Patient present in her room in her bed. Patient is able to recall two of three hip precautions but needs help to recall no IR. Patient ambulated from room down harris ~75 feet with CGA and 3 seated rest breaks. Patient was able to perform stair training with mod cuing for technique with step to gait ascend and descend 4 stairs with handrail on both sides. Patient is going home to steep stairs with railing and then 3 steps without railing or she has to ambulate through grass to get to her back deck after the stairs with railing. Patient would benefit from staying on ECF unit for a few more days to build strength and endurance before discharging home. Patient then ambulated back another 75 feet amd needed two seated rest break. Patient reports she feels out of breath. Her pulse ox was at 90%. Patient then transferred back into bed with unsafe technique but is unwilling to listen to proper transfer technique. Patient has decreased safety awareness with transfers, hip precautions and overall safety. Physical Therapy Goals 1. Pt to be modified indep with safe technique for supine to/from sit transfers. 2. Pt to be modified indep with sit to/from stand transfer with least restrictive device and appropriate balance in standing to allow for toileting needs and pericare. 3. Pt to ambulate x 100' with SBA/Modified indep and least restrictive device 4. Pt to complete up/down 4 steps with rail and SBA/CGA for safety 5. Pt to verbalize and demo compliance with posterior hip precautions during ADL's. Patient's Goals
--- NOTE | 2018-08-30 09:50 | NUR ---
Occupational Therapy Impression Independent bed mobility in/out. Mod (I) ambulation with RW. Mod (I) LB dressing. Educated on where to obtain LB AE. Mod (I) toileting. Pt declined shower, reports walk-in shower with chair at home. Reporting desire to discharge home today at current level of function. Reporting no concerns, that daughter will be present to assist with all ADLs/IADLs. Pt has met skilled OT goals that she is agreeable to address. Plan to d/c skilled OT services. Pt safe for discharge when medically appropriate and PT goals are met. Occupational Therapy Goals 1) Pt will be Min A LB dressing with education for LB AE. 2) Pt will be SBA grooming/hygiene. 3) Pt will be SBA toilet task. 4) Pt will be Mod A shower task. 5) Pt Rosalinda Index of ADLs will improve by 2 points. Patient's Goal
--- NOTE | 2018-08-30 10:59 | NUR ---
Resident insisting she is going home today. At ~ 0915 I met with resident who states she's going home, this is the only day her daughter can pick her up. OT/PT notified, Dr. Landry's office notified and Lizbeth Smallwood RN [facility] notified. Dr. Landry is in [facility] today. OT has cleared her for discharge, PT stated she agreed it was too hard and was willing to stay. Met with resident again who stated she didn't think PT was that hard and that she actually thought it was easier than she thought it would be. Message left for PT with this perception. Resident has not been able to reach her daughter, she will notify us when/if she plans on leaving today.
--- NOTE | 2018-08-30 12:51 | NUR ---
Resident now stating she cannot leave until Thursday since her family cannot drive to pick her up.
--- NOTE | 2018-08-30 13:55 | NUR ---
OCCUPATIONAL THERAPY Dressing Assistance: Mod (I) with AE. Pt educated on where to obtain AE if desired. Daughter was assisting with LB dressing prior to sx. Dressing Aid Required: Outpatient Coding Specialist, Sock Aid Bathing Assistance: Refused to address with OT. Reports daughter assists with bathing at home. Reports walk-in shower with bench at granddaughter's home that she will utilize. Bathing Equipment: Shower chair Home Assessment: Not Completed Feeding Assistance: Independent Feeding Specialized Equipment: None Toilet Use: Modified I/ AE Verbalizes Needs: Yes Understands Precautions: Yes, occasional v/c's as pt is impulsive with decreased safety awareness. Cooperative: Yes Family Teaching: No Occupational Therapy Comment:
--- NOTE | 2018-08-30 14:06 | OT ECF NOTE ---
Type of Note: Discharge Note Primary Medical Diagnosis: Generalized weakness s/p right total hip replacement. WBAT, Posterior hip precautions Occupational Therapy Evaluation Date: 08/27/18 SUBJECTIVE: Prior Hospitalization: [facility] 08/24/18 thru 08/27/18. DOS: 08/24/[address] Landry Prior Level of Function: Patient reports daughter resides with her and assists with LB dressing, bathing and all IADLs. Pt reports seeing a chronic pain specialist and leaving the house primarily for medical appointments. She reports frequent falls at home with roughly 10 falls in the last month. Prior Living Status: Apartment Living with family-daughter Assist by family Community Services: No known needs Home Accessibility: Stairs with rails All needs on one level Tub/shower commination-Pt reports she will use walk-in shower at granddaughter's home Equipment Owned: Front wheeled walker Toilet riser Medical Complications/Past Medical History: Chronic tremor-pt reports Parkinson's, hx DVTs Psychosocial Support: Supportive family in [place] Pain Scale (0-10): No pain reported at discharge date from OT. OBJECTIVE: Strength: MMT: Right Left Shoulder Flexion WFL WFL Elbow Flexion WFL WFL Wrist Extension WFL WFL Fabric Lay Out Worker WFL WFL (5= normal, 4= good, 3= fair, 2= poor, 1= trace) ROM: Both upper extremities, WFL Sensation: Report of chronic neuropathy in bilateral lower extremities Functional Transfer: Assistive Device: Front wheeled walker Transfer Ability: Modified Independent-impulsive with decreased safety awareness. ADL: Upper body dressing: Assistive device: Upper body dressing ability: Independent Lower body dressing: Assistive device: Pt wears flip flops at baseline. Daughter assists with LB dressing at baseline. Lower body dressing ability: Mod (I) with AE. Pt educated on where to obtain AE if desired. Daughter was assisting with LB dressing prior to sx. Toileting: Assistive device: [facility] Toileting ability: Modified Independent-Demonstrates ability to ambulate appropriate household distances as she will have to complete at home. Grooming/hygiene: Assistive device: Seated Grooming ability: Independent Bathing: Assistive device: Bathing ability: N/T-Pt refused to address this goal with OT. Daughter assists with bathing at baseline. Standardized Assessment: Rosalinda Index of Activities of Daily Livin/20 upon initial evaluation (08/27/18). upon discharge (08/30/18). ASSESSMENT: Lynsey presented to [facility] with decreased independence for ADLs and functional mobility s/p right total hip replacement. She verbalizes all posterior hip precautions but demonstrates impulsive behavior with decreased safety awareness. No carryover with v/c's from OT. At [facility], she was ambulating throughout her apartment and independent with toileting. She has met all skilled OT goals and desires to discharge home with continued assist from family for ADLs/IADLs. Pt declines further needs or concerns to address with OT at this time. Short Term Goals: 1) Pt will be Min A LB dressing with education for LB AE. GOAL MET. 2) Pt will be SBA grooming/hygiene. GOAL MET. 3) Pt will be SBA toilet task. GOAL MET. 4) Pt will be Mod A shower task. Pt declined to address goal. 5) Pt Rosalinda Index of ADLs will improve by 2 points. GOAL MET. Can Conveyor Feeder Goals: Return home with HH services and continued assist from daughter Patient Goals: Return home to cat Rehabilitation Prognosis: Good Barriers to Discharge: Medical hx, Hx of frequent falls PLAN: The patient will be discharged from skilled OT services. Plan for discharge home with continued assist from family for ADLs/IADLs and HH services. Thank you for this referral. If you have any questions, concerns, or comments about this report or plan, please contact me at . Mae Jama MS, OTR/L Occupational Therapist ANNEL
[2018-08-30 15:25] VITALS: BP 116/72
--- NOTE | 2018-08-30 16:41 | Medical Nutrition Therapy ---
Nutrition Anthropometrics Height (Inches): 67.00 Height (Calculated Centimeters: 170.491014 Weight (Pounds): 184 Weight (Calculated Kilograms): 83.461 BMI: 28.8 Rodrick Nutrition Score: Probably Inadequate Rodrick Nutrition Risk Score: 16 Dietary Referral Nutrition Risk Factors: Nutrition Risk Comment: Physical Findings Physical Appearance: Overweight BMI 25-29 Skin Appearance Skin Appearance: Edema Edema Location Modifier: Right Edema Location: Hip Type of Edema: Degree of Edema: 1+ Gastrointestinal Symptoms GI Symtoms: Change in Bowel Pattern Tube Present: Bowel Sounds: Recent Bowel Pattern: Stool Characteristics: Nutritional Diagnosis Nutritional Risk Acuity 4: Good Appetite Nutritional Acuity: 4-Low Energy Requirement: 2500 (30 kcal/kg) Protein Requirement: 83 (1g/kg) Fluid Requirement: 2500 (30ml/kg) Diet Type: Diet as Tolerated TEGAN/REG Nutrition Intervention: Cont diet as ordered, Encourage intake, HS snack Nutrition Monitoring & Eval Nutrition Goals: Eat 75-100% Meal RD Patient Assessment Time: [address] Assessment Type: RD Assessment Patient Nutrition Acuity: 4-Low Follow Up Date: September 07, 2018 Nutritional Comment: 08/28 pt admitted s/p right hip replacement. Pt on TEGAN and eating 100% of meals. BUN/creatinine mildly elevated at 20/1.3. Will cont to monitor and encourage intake. BK 08/30 Pt cont on TEGAN,eating 75-100% of meals. No change in wt. Will cont to monitor and encourage intake. JALEN ERAZO August 30, 2018 16:40
[2018-08-30 20:20] VITALS: BP 109/71
[2018-08-30] MEDS: ZOLPIDEM TARTRATE 10 MG TAB PO PRN (20:21)
[2018-08-31] MEDS: oxyCODON/ACET (*)5/325MG (CII) 1 TAB TAB PO PRN ×5 (00:55→23:10)
[2018-08-31 07:40] VITALS: BP 88/51
[2018-08-31] MEDS: DOCUSATE SODIUM 100 MG CAP PO SCH ×2 (08:52→20:43)
[2018-08-31] MEDS: PROPRANOLOL HCL 20 MG TAB PO SCH ×2 (08:53→20:43)
[2018-08-31] MEDS: POLYETHYLENE GLYCOL 17 GM PKT PO SCH (08:53)
[2018-08-31] MEDS: ENOXAPARIN 30 MG/0.3 ML SYR SC SCH (08:53)
--- NOTE | 2018-08-31 10:45 | NUR ---
Physical Therapy Impression Patient continue to transfer back to bed by sitting off half of the bed but she is getting close to the middle of the bed and is following her hip precautions with her transfers. Patient ambulated throughout hallways ~181 feet CGA with FWW with 5 seated rest breaks. Patient instructed to wait to make sure breaks on locked on w/c before sitting as she tends to be impulsive. Patient complained of being dizzy throughout treatment. Her oxygen was checked and it was at 94% on room air and her blood pressure was checked at the end of ambulation and it was 114/69 in sitting and 95/63 with standing right after checking it with sitting. Patient is SBA with bed mobility and STS transfers. Patient encouraged to use bathroom during the day instead of bedside commode. Physical Therapy Goals 1. Pt to be modified indep with safe technique for supine to/from sit transfers. 2. Pt to be modified indep with sit to/from stand transfer with least restrictive device and appropriate balance in standing to allow for toileting needs and pericare. 3. Pt to ambulate x 100' with SBA/Modified indep and least restrictive device 4. Pt to complete up/down 4 steps with rail and SBA/CGA for safety 5. Pt to verbalize and demo compliance with posterior hip precautions during ADL's. Patient's Goals
[2018-08-31 17:10] VITALS: BP 109/71
[2018-08-31] MEDS: ZOLPIDEM TARTRATE 10 MG TAB PO PRN (20:43)
[2018-09-01] MEDS: oxyCODON/ACET (*)5/325MG (CII) 1 TAB TAB PO PRN ×3 (05:53→22:10)
[2018-09-01 08:44] VITALS: BP 111/76
[2018-09-01] MEDS: PROPRANOLOL HCL 20 MG TAB PO SCH ×2 (09:00→20:46)
[2018-09-01] MEDS: POLYETHYLENE GLYCOL 17 GM PKT PO SCH (09:15)
[2018-09-01] MEDS: ENOXAPARIN 30 MG/0.3 ML SYR SC SCH (09:15)
[2018-09-01] MEDS: DOCUSATE SODIUM 100 MG CAP PO SCH ×2 (09:15→20:44)
--- NOTE | 2018-09-01 09:46 | NUR ---
Pt refused to get out of bed for breakfast, states "not feeling well" and is unable to elaborate on what doesn't feel well. Pt ate breakfast, had morning medications, reports pain 09/20. Will continue to offer assistance on bed mobility and transfers, encouraging pt to get out of bed for meals.
--- NOTE | 2018-09-01 14:32 | Hospitalist Progress Note ---
Subjective Progress Notes Subjective The patient states she is not feeling well today. She states she is having heavy pressure in her chest. She has never had this before. She denies cough, fever or chills. She does have COPD and uses an albuterol MDI prn. She states her COPD symptoms are different. She has a history of multiple blood clots in the past. Mostly DVTs, but she has had one PE. She did have an IVC filter placed in the past due to recurrent clotting. Per her external med history, she filled an RX for Eliquis 5mg bid on August 17 but she states she wasn't taking it at home. Per her preoperative clearance note from Dr. Delgadillo, the patient was instructed to stop her warfarin and start Eliquis. This note was dated August 17. The patient states she hasn't taken warfarin for a long time. The patient does have FH of heart disease in her father. Physical Exam Vital Signs Date Time Temp Pulse Resp B/P (MAP) Pulse Ox O2 Delivery O2 Flow Rate FiO2 09/01/18 10:00 91 Room Air 09/01/18 08:44 97.4 71 13 111/76 (88) 08/31/18 17:10 2.0 Intake and Output 09/01/18 07:00 Intake Total 1200 ml Output Total 325 ml Balance 875 ml Intake Oral 1200 ml Output Urine Total 325 ml # Voids 8 General Appearance: Alert, Awake, No Acute Distress Neuro: No Gross deficits Cardiovascular: Regular Rate and Rhythm Respiratory: Clear to Auscultation GI: Soft and Non-Tender Extremities: Warm, Perfused Psych: Appropriate Mood & Affect Assessment and Plan Problems: (1) Chest pressure Status: Acute Assessment & Plan: EKG shows no ischemia. Troponin, BMP and CBC are pending. She certainly could have had a clot form on the IVC filter and go to her lungs. She has CKD. Will get a stat BMP to assess kidney function. May need a CTA versus starting her back on anticoagulation. If she did have a PE she is quite stable and the treatment would be to place her back on Eliquis. (2) Recurrent deep vein thrombosis (DVT) Status: Chronic Assessment & Plan: The patient was supposed to be anticoagulated but had stopped her medications. She did fill an RX for Eliquis on August 17 but states she didn't take it and doesn't know what she did with the RX. Per her preop clearance note, she was switched from warfarin to Eliquis. The patient states she had not taken warfarin for a long time. She does note that she has had multiple DVTs and one episode of PE. She can't remember why the IVC filter was placed. She will need to be anticoagulated. She is currently on Lovenox 30mg daily. Will stop this and start Eliquis 5mg bid. No dosage adjustment is needed with her current CKD. Estimated CrCl is 43.87. (3) Tobacco abuse Status: Chronic Assessment & Plan: Nicotine replacement ordered. (4) Essential tremor Status: Chronic Assessment & Plan: She had been on propranolol at home but states it wasn't helping so she stopped it. (5) CKD (chronic kidney disease) Status: Chronic (6) Hepatitis C Status: Chronic Assessment & Plan: Antibody positive per her preop clearance note. (7) COPD (chronic obstructive pulmonary disease) Status: Chronic Assessment & Plan: On albuterol MDI at home. (8) Chronic pain syndrome Status: Chronic Assessment & Plan: She sees a pain specialist and takes oxycodone tid. She had been on OxyContine 15mg bid but states her insurance stopped covering it. (9) Hx MRSA infection Status: Chronic Time Spent on Plan of Care: < 30 min Problem Qualifiers (1) CKD (chronic kidney disease): Chronic kidney disease stage: stage 3 (moderate) Qualified Codes: N18.3 - Chronic kidney disease, stage 3 (moderate) JULES CACERES MD September 01, 2018 14:32
--- NOTE | 2018-09-01 14:40 | NUR ---
Physical Therapy Impression Patient performed TE including: Marching B x10 minimal movement Hip ABD x 10 SLR with AA x10 ankle pumps x 20 Heel slide x 10 Patients therapy was limited today due to pain all over. Patient was very guarded and limited with movement today. Physical Therapy Goals 1. Pt to be modified indep with safe technique for supine to/from sit transfers. 2. Pt to be modified indep with sit to/from stand transfer with least restrictive device and appropriate balance in standing to allow for toileting needs and pericare. 3. Pt to ambulate x 100' with SBA/Modified indep and least restrictive device 4. Pt to complete up/down 4 steps with rail and SBA/CGA for safety 5. Pt to verbalize and demo compliance with posterior hip precautions during ADL's. Patient's Goals
--- NOTE | 2018-09-01 14:41 | EKG ---
FACILITY: [facility] PATIENT NAME: ABUNDIO BARRIOS : [id number] MR: [id number] V: [id number] EXAM DATE: ORDERING PHYSICIAN: JULES CACERES TECHNOLOGIST: COLEEN Gilmore Reason : CHEST PRESSURE Blood Pressure : / mmHG Vent. Rate : 078 BPM Atrial Rate : 078 BPM P-R Int : 138 ms QRS Dur : 084 ms QT Int : 376 ms P-R-T Axes : 011 009 027 degrees QTc Int : 428 ms Normal sinus rhythm Low voltage QRS No ST-T abnormalties No previous ECGs available Confirmed by CAROLE PONCE ([id number]) on 09/01/2018 3:05:15 PM Referred By: NICKI Confirmed By:CAROLE PONCE
[2018-09-01 15:21] LABS: PLATELET COUNT, AUTOMATED 375 K/uL (150-450)
[2018-09-01 15:40] VITALS: BP 115/71
--- NOTE | 2018-09-01 16:13 | Miscellaneous Provider Note ---
Miscellaneous Provider Note Note Troponin is negative. BMP shows a creatinine of 1.3. Patient started on Eliquis which per her primary care physician's preop clearance note was her plan for the patient postoperatively. JULES CACERES MD September 01, 2018 16:12
[2018-09-01] MEDS ORDERED: OXYC20TA99 PO (16:16)
[2018-09-01] MEDS ORDERED: APIX2.5T PO (16:16)
--- NOTE | 2018-09-01 16:26 | Hospitalist Depart ---
Discharge Summary Reason for Hosp/Final Diag: (1) Recurrent deep vein thrombosis (DVT) Status: Chronic Hospital Course & Plan: The patient was supposed to be anticoagulated prior to admission but states she had stopped her medications months ago. She did fill an RX for Eliquis on August 17 per the external medication history but states she didn't take it and doesn't know what she did with the RX. Per her preop clearanc e note, she was switched from warfarin to Eliquis in anticipation of the surgery and was to continue Eliquis postoperatively. The patient states she had not taken warfarin for a long time. She does note that she has had multiple DVTs and one episode of PE. She does have an IVC filter but can't remember why it was placed. She was placed on Eliquis 5mg bid while on ECF and was instructed to continue it at discharge and follow up with Dr. Alyse RAYMUNDO. (2) Chest pressure Status: Acute Hospital Course & Plan: The patient did have an episode of chest pressure on ECF. EKG showed no ischemia. Troponin was negative. VS were stable and her oxygen requirement did not change. Lovenox was stopped and she was placed on Eliquis bid which was recommended by her primary care physician in her preop clearance note. (3) Tobacco abuse Status: Chronic Hospital Course & Plan: Nicotine replacement ordered. (4) Essential tremor Status: Chronic Hospital Course & Plan: She had been on propranolol at home but states it wasn't helping so she stopped it. She was placed on propranolol 80mg bid while on ECF with hold parameters based on her BP. (5) CKD (chronic kidney disease) Status: Chronic Hospital Course & Plan: Creatinine was 1.3. (6) Hepatitis C Status: Chronic Hospital Course & Plan: Antibody positive per her preop clearance note. (7) COPD (chronic obstructive pulmonary disease) Status: Chronic Hospital Course & Plan: On albuterol MDI at home. She had prn nebulizers ordered while on ECF. (8) Chronic pain syndrome Status: Chronic Hospital Course & Plan: She sees a pain specialist and takes oxycodone tid. She had been on OxyContin 15mg bid but states her insurance stopped covering it. She was placed on OxyContin 20mg bid postoperatively. She is to continue her oxycodone 10mg tid for breakthrough pain as well at home. (9) Hx MRSA infection Status: Chronic Departure Weight (Pounds): 184 Result Diagram: 09/01/18 1449 09/01/18 1449 Condition: Improved PT/OT Follow Up For: PT For Strengthening, OT For ADL's Home Health RN Follow Up For: Nursing Assessment Home Health [employer] Follow Up For: ADL Assistance Discharge Instructions Home Meds Active Scripts Oxycodone Hcl (OXYCONTIN) 20 Mg Tab.er.12h, 20 MG PO BID, #60 TAB Prov:JULES CACERES MD 09/01/18 Reported Medications Albuterol Sulfate (VENTOLIN HFA) 18 Gm Inh, 1 INH INH PRN PRN for SHORTNESS OF BREATH 08/24/18 Oxycodone Hcl 10 Mg Tab (OXYCODONE HCL 10 MG TAB) 10 Mg Tablet, 10 MG PO TID PRN for PAIN 08/24/18 Tizanidine Hcl (TIZANIDINE HCL) 4 Mg Capsule, 4 MG PO DAILY PRN for HEADACHE, CAPSULE 08/17/18 Zolpidem Tartrate (AMBIEN) 10 Mg Tablet, 1 TAB PO QHS, TAB 08/17/18 Propranolol Hcl (PROPRANOLOL HCL) 40 Mg Tablet, 80 MG PO BID 08/17/18 Diet: Regular Activity: As Tolerated Special Instructions: The patient is to follow up with her primary care provider, her kidney specialist, her pain specialist and her neurologist as previously scheduled after discharge. Copies to: YAZMIN YEUNG MD ; Problem Qualifiers (1) CKD (chronic kidney disease): Chronic kidney disease stage: stage 3 (moderate) Qualified Codes: N18.3 - Chronic kidney disease, stage 3 (moderate) JULES CACERES MD September 01, 2018 16:26
[2018-09-01] MEDS: ZOLPIDEM TARTRATE 10 MG TAB PO PRN (20:44)
[2018-09-01] MEDS: APIXABAN 2.5 MG TABLET PO SCH (20:45)
[2018-09-02] MEDS: oxyCODON/ACET (*)5/325MG (CII) 1 TAB TAB PO PRN ×4 (05:27→22:45)
[2018-09-02 08:30] VITALS: BP 120/77
[2018-09-02] MEDS: PROPRANOLOL HCL 20 MG TAB PO SCH ×2 (09:00→20:28)
[2018-09-02] MEDS: DOCUSATE SODIUM 100 MG CAP PO SCH ×2 (09:13→20:28)
[2018-09-02] MEDS: POLYETHYLENE GLYCOL 17 GM PKT PO SCH (09:13)
[2018-09-02] MEDS: APIXABAN 2.5 MG TABLET PO SCH ×2 (09:13→20:28)
--- NOTE | 2018-09-02 11:49 | NUR ---
Physical Therapy Impression Patient instructed in gait training with FWW with CGA ~150 feet with cuing for weight shift onto right LE. Patient needed 2 seated rest breaks and 4 standing rest breaks. Bed Mob SBA Transfers SBA needs cuing for safety Physical Therapy Goals 1. Pt to be modified indep with safe technique for supine to/from sit transfers. 2. Pt to be modified indep with sit to/from stand transfer with least restrictive device and appropriate balance in standing to allow for toileting needs and pericare. 3. Pt to ambulate x 100' with SBA/Modified indep and least restrictive device 4. Pt to complete up/down 4 steps with rail and SBA/CGA for safety 5. Pt to verbalize and demo compliance with posterior hip precautions during ADL's. Patient's Goals
--- NOTE | 2018-09-02 14:00 | NUR ---
Pt states wanting Rx for 10mg Oxy IR TID. Pt teaching re: rx for Percocet and OxyContin 20mg ER available and to follow up with PCP or Dr. Meehan for other medications. Message left with nurse of [facility] for face to face and Rx request from pt.
--- NOTE | 2018-09-02 14:38 | NUR ---
5-day and DC MDS completed with pt. C: 15, D: 03, E: no concerns, Q: plan to DC to community, referral made for [facility]. No other DC needs identified.
[2018-09-02 16:30] VITALS: BP 113/71
[2018-09-02] MEDS: ZOLPIDEM TARTRATE 10 MG TAB PO PRN (20:28)
[2018-09-03] MEDS: oxyCODON/ACET (*)5/325MG (CII) 1 TAB TAB PO PRN ×4 (03:35→23:08)
[2018-09-03 08:35] VITALS: BP 105/56
[2018-09-03] MEDS: PROPRANOLOL HCL 20 MG TAB PO SCH ×2 (08:37→20:17)
[2018-09-03] MEDS: POLYETHYLENE GLYCOL 17 GM PKT PO SCH ×2 (08:38→08:50)
[2018-09-03] MEDS: DOCUSATE SODIUM 100 MG CAP PO SCH ×2 (08:39→20:16)
[2018-09-03] MEDS: APIXABAN 2.5 MG TABLET PO SCH ×2 (08:39→20:17)
--- NOTE | 2018-09-03 13:45 | NUR ---
Physical Therapy Impression Patient uses a different technique but is safe with her transfers and is following her hip precautions. Patient is SBA to Mod I with gait. Patient has step through gait but needs increased weight shift onto right LE. Patient ambulated 125 feet today with cuing for weight shift. Patient was able to recall proper sequencing with stairs but will need CGA with family member when doing stairs at home. Patient ascended and descended 4 stairs with CGA with railing on both sides. Patient educated to rest if needed before performing stairs when she returns home. Patient was able to recall her hip precautions without cuing and has been compliant with them during treatment the last few days. All goals have been met and patient is ready to be discharge to her home where she will have HH. Physical Therapy Goals 1. Pt to be modified indep with safe technique for supine to/from sit transfers. 2. Pt to be modified indep with sit to/from stand transfer with least restrictive device and appropriate balance in standing to allow for toileting needs and pericare. 3. Pt to ambulate x 100' with SBA/Modified indep and least restrictive device 4. Pt to complete up/down 4 steps with rail and SBA/CGA for safety 5. Pt to verbalize and demo compliance with posterior hip precautions during ADL's. Patient's Goals
--- NOTE | 2018-09-03 14:04 | NUR ---
Adilene Ugarte stated she would drop of written script for Oxycontin at local [facility] so it can be pre-authorized so patient can pick it up in [place] and insurance will cover it.
[2018-09-03] MEDS: ZOLPIDEM TARTRATE 10 MG TAB PO PRN (20:20)
[2018-09-04] MEDS: oxyCODON/ACET (*)5/325MG (CII) 1 TAB TAB PO PRN ×3 (05:05→14:22)
[2018-09-04 08:05] VITALS: BP 103/77
[2018-09-04] MEDS: DOCUSATE SODIUM 100 MG CAP PO SCH (08:45)
[2018-09-04] MEDS: APIXABAN 2.5 MG TABLET PO SCH (08:45)
[2018-09-04] MEDS: POLYETHYLENE GLYCOL 17 GM PKT PO SCH (09:00)
[2018-09-04] MEDS: PROPRANOLOL HCL 20 MG TAB PO SCH (09:00)
--- NOTE | 2018-09-06 08:41 | PT ECF NOTE ---
Type of Note: Discharge Summary Primary Medical Diagnosis: Generalized weakness s/p right total hip replacement. WBAT, Posterior hip precautions SUBJECTIVE: Prior Hospitalization: [facility] 08/24/18 thru 08/27/18. DOS: 08/24/[address] Landry Prior Level of Function: Patient reports daughter resides with her and assists with LB dressing, bathing and all IADLs. Pt reports seeing a chronic pain specialist and leaving the house primarily for medical appointments. She reports frequent falls at home with roughly 10 falls in the last month. Prior Living Status: Apartment; Living with family-daughter ; Assist by family Community Services: No known needs Home Accessibility: 6 Stairs with rails to enter; All needs on one level; Tub/shower commination Equipment Owned: Front wheeled walker; Toilet riser Medical Complications/Past Medical History: Chronic tremor-pt reports Parkinson's, hx DVTs Psychosocial Support: Supportive family in [place] OBJECTIVE: Strength: R) LE not tested secondary to NELSON; L) LE WFL however dyskinesia affects control of strength at times. ROM: (please note any abnormalities) R) LE not tested secondary to NELSON; L) LE WFL. Sensation: (please note any abnormalities) No paresthesias reported Other Neuro findings: Pt reports Parkinson's and that recent increase in medication has not been helpful with her tremors. Pt does not appear to have tremors when resting in bed, however, they increase dramatically when attempting to ambulate or when releasing walker with one hand to doff brief for toileting. Bed Mobility: Independent Transfers: En Gait: SBA x 150' with RW Stairs: CGA x 4 ASSESSMENT: The patient met PT goals and was deemed safe to d/c home from a mobility stand point when medically appropriate. She will d/c to prior living situation with assistance from family and [facility] services in place. It was recommended that she receive CGA with stair negotiation. Problem List/Current Limitations: Pain, Decreased WB, Decreased activity david, Decreased strength, Decreased ROM, Decreased coordination, Ataxia Decreased balance, Poor safety awareness, Decreased problem solving Short Term Goals: (met) 1. Pt to be modified indep with safe technique for supine to/from sit transfers. 2. Pt to be modified indep with sit to/from stand transfer with least restrictive device and appropriate balance in standing to allow for toileting needs and pericare. 3. Pt to ambulate x 100' with SBA/Modified indep and least restrictive device 4. Pt to complete up/down 4 steps with rail and SBA/CGA for safety 5. Pt to verbalize and demo compliance with posterior hip precautions during ADL's. Custodial Goals: Pt to return home with assistance of family members to assist with ensuring safety with posterior hip precautions. (met) Patient Goals: Return home as soon as possible (met) PLAN: The patient discharged to prior living situation with [facility] services in place and assistance from family. Thank you for this referral. If you have any questions, concerns, or comments about this report or plan, please contact me at . Rita Hernandez, PT, DPT MTDD
== END 2018-09-04 16:00 | disposition home health service (06) | DRG 561 ==
LOC: ECF 10:22
PROVIDERS: ADMIT Internal Medicine; ATTEND Internal Medicine
DX: Z47.1 Aftercare following joint replacement surgery (principal); G25.0 Essential tremor; B18.2 Chronic viral hepatitis C; F17.210 Nicotine dependence, cigarettes, uncomplicated; G89.4 Chronic pain syndrome; I12.9 Hypertensive chronic kidney disease with stage 1 through stage 4 chronic kidney disease, or unspecified chronic kidney disease; N18.9 Chronic kidney disease, unspecified; J44.9 Chronic obstructive pulmonary disease, unspecified; Z96.641 Presence of right artificial hip joint; Z86.718 Personal history of other venous thrombosis and embolism; Z86.711 Personal history of pulmonary embolism; Z79.01 Long term (current) use of anticoagulants; Z86.14 Personal history of Methicillin resistant Staphylococcus aureus infection; Z90.49 Acquired absence of other specified parts of digestive tract; Z90.710 Acquired absence of both cervix and uterus; Z88.0 Allergy status to penicillin; Z88.8 Allergy status to other drugs, medicaments and biological substances
CPT/HCPCS: 36415; 82310; 82374; 82435; 82565; 82947; 84132; 84295; 84484; 84520; 85025; 93005; 97161; 97166; J1650; J3490